=== PATIENT | female | born 2000 | race Caucasian/White ===

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

== ENCOUNTER 2020-03-11 16:24 | Emergency (ER) | payer OTHER ==
[~2020-03-11] VITALS: Ht 162.6 cm; Wt 89.8 kg
[2020-03-11 16:30] VITALS: BP 118/79; TEMP 98.9
== END 2020-03-11 18:41 | disposition home or self-care (01) ==
LOC: ED 16:24
DX: B34.8 Other viral infections of unspecified site (principal)
CPT/HCPCS: 87651; 99282

== ENCOUNTER 2021-11-04 17:12 | Outpatient (CLI) | payer OTHER | END 2021-11-04 19:18 | disposition home or self-care (01) | LOC: LABW 17:12 | PROVIDERS: ATTEND Nurse Practitioner Family | DX: J01.90 Acute sinusitis, unspecified (principal) | CPT/HCPCS: 87502; 87651 ==

== ENCOUNTER 2022-01-05 23:17 | Emergency (ER) | payer OTHER ==
[~2022-01-05] VITALS: Ht 162.6 cm; Wt 93.0 kg
[2022-01-06 00:47] LABS: PLATELET COUNT 318 K/uL (152-353)
[2022-01-06 01:28] VITALS: BP 137/91; TEMP 97.9
== END 2022-01-06 01:28 | disposition home or self-care (01) ==
LOC: ED 23:17
PROVIDERS: Emergency Medicine Emergency Medical Services
PROC: 2W3CX1Z Immobilization of Right Lower Arm using Splint (ICD-10-PCS; principal; 2022-01-05)
DX: M65.88 Other synovitis and tenosynovitis, other site (principal)
CPT/HCPCS: 36415; 81025; 85027; 85379; 85610; 93005; 96372; 99284; J1650

== ENCOUNTER 2022-01-07 14:31 | Observation (INO) | payer OTHER ==
[~2022-01-07] VITALS: Ht 160 cm; Wt 95.8 kg
--- NOTE | 2022-01-07 15:12 | NUR ---
PATIENT AMULATED TO ROOM 1109. PATIENT HAD A BRACE ON RIGHT WRIST. VITALS OBTAINED AND DOCUMENTED.
[2022-01-07 15:14] VITALS: BP 128/82; TEMP 98.7; Ht 160 cm; Wt 95.8 kg
[2022-01-07 16:08] LABS: PLATELET COUNT 366 K/uL (152-353)
[2022-01-07 20:00] VITALS: BP 127/79; TEMP 98.8
--- NOTE | 2022-01-07 20:00 | NUR ---
PATIENT SITTING UP IN BED. CLIENT REPORTS THROBBING 7/10 IN 3RD FINGER ON RIGHT HAND. CLIENT STATES THAT AFTER VANCOMYCIN INFUSED, REPORTS BILATERAL ITCHING OF PALMS OF HANDS AND ABDOMEN. MD NOTIFIED, ORDERS RECEIVED, SEE MAR. COLLECTED URINE SAMPLE. THIS NURSE MARKED REDNESS AND SWELLING ON FINGER. IV ACCESS NOTED TO LEFT ARM.
[2022-01-08] VITALS (9 sets, daily range): BP systolic 102–116; BP diastolic 65–85; TEMP 97.6–98.8
--- NOTE | 2022-01-08 02:00 | NUR ---
PATIENT REPORTS FINGER PAIN "NO LONGER THROBBING BAD." CLIENT RESTING IN BED. CALL LIGHT IN REACH.
--- NOTE | 2022-01-08 05:39 | NUR ---
PATIENT RESTING IN BED. 3RD FINGER SWELLING AND REDNESS DECREASED FROM ADMISSION LINE. CLIENT STATES THAT FINGER IS A 4/10, NO LONGER THROBBING LIKE DURING THE NIGHT.
--- NOTE | 2022-01-08 08:37 | NUR ---
PATIENT RESTING IN ROOM WITH NO COMPLAINTS AT THIS TIME.
--- NOTE | 2022-01-08 10:23 | NUR ---
HERE ROUNDING ON PATIENT. PHYSICIAN NOTIFIED PATIENT ABOUT DEBRIDING WOUND TO THE RIGHT HAND MID FINGER. PATIENT CONSENTS TO TREATMENT. CONSENT FORMS SIGNED AT THIS TIME.
--- NOTE | 2022-01-08 10:30 | NUR ---
IS AT THE BEDSIDE EXPLAINING PROCEDURE. 1051- VITALS SIGNS WERE TAKING PRIOR TO DEBRIDMENT: B/P 114/81, P-59,02 100@ RA, RR-18, 1055- FINGER CLEANED WITH CHOLORHEXDINE USING STERILE TECHNIQUE. LIDOCAINE GIVEN ON THE RIGHT HAND MIDFINGER. PATIENT TOLERATED WELL. 1100- VS B/P 113/85, P-55,02 -98% RA, RR-18. 1105- SANGUINOUS AND PUS DRAINAGE NOTED. MIDFINGER NAIL BED REMOVED. PATIENT TOLERATED WELL. 1110- B/P 116/74, P-66, 02 98%RA, RR-18. 1115-FINGER SOAKED WITH BETADINE FOR 5 MINUTES. 1120- BACTROBAN APPLIED, 2X2 PLACED AND SECURED WITH TUBULAR GAUZE. PATIENT IS RESTING COMFORTABLY. HAND ELEVATED. NO ACUTE DISTRESS IS NOTED.
[2022-01-08 10:42] LABS: PLATELET COUNT 318 K/uL (152-353)
[2022-01-08 10:53] LABS: POTASSIUM 4.1 mmol/L (3.6-5.2)
--- NOTE | 2022-01-08 18:17 | NUR ---
PATIENT IS RESTING IN ROOM IN HF POSITION IN BED. PATIENT HAS NO COMPLAINTS AT THIS TIME. CALL LIGHT WITHIN REACH
--- NOTE | 2022-01-08 21:50 | NUR ---
PATIENT SITTING UP IN BED, FAMILY MEMBER BROUGHT OUTSIDE DINNER. CLIENT DENIES PAIN/ DISCOMFORT AT THIS TIME. CALL LIGHT IN REACH, ANTIBIOTIC INFUSING.
[2022-01-09] VITALS: BP 110/67; TEMP 99
[2022-01-09 04:00] VITALS: BP 102/58; TEMP 98.6
[2022-01-09 05:17] LABS: PLATELET COUNT 301 K/uL (152-353)
[2022-01-09 05:32] LABS: POTASSIUM 3.8 mmol/L (3.6-5.2)
[2022-01-09 08:00] VITALS: BP 112/72; TEMP 98.4
--- NOTE | 2022-01-09 08:30 | NUR ---
REC'D ORDERS TO GET WITH ABX ALBAN AND ASK WHICH ABX WOULD BE BEST PO. WILL GET WITH [facility] IN [facility]
--- NOTE | 2022-01-09 08:48 | NUR ---
WOUND CULTURE RESULTS SENT TO DR SANTORO ALONG WITH LABS. AWAITING FURTHER ORDERS AT THIS TIME.
--- NOTE | 2022-01-09 09:20 | NUR ---
CALLED [facility] IN [facility] AND ASKED ABOUT PO ABX PER DR SANTORO REGARDING THE WOUND CULTUTRE AND SENSITIVITY. INSTRUCTED THAT DOXYCYCLINE WAS THE CHOICE OF PO ABX. DR SANTORO INFORMED AND AWAITING FURTHER ORDERS.
[2022-01-09 12:00] VITALS: BP 117/69; TEMP 98.3
--- NOTE | 2022-01-09 14:57 | NUR ---
NEW VERBAL ORDER REC'D FROM DR SANTORO TO GIVE ULTRAM 50MG X 1 PO NOW. GIVEN PER MD ORDERS
[2022-01-09 16:05] VITALS: BP 115/72; TEMP 98.7
--- NOTE | 2022-01-09 17:44 | NUR ---
PT IS COMPLETED WITH IV ABXS. IV SITE DC'D AND ROUTINE SITE CARE GIVEN. DISCHARGE ISNTRUCTIONS GIVEN AND EXPLAINED TO PT AND PT VERBALZIED UNDERSTANDING.
--- NOTE | 2022-01-09 17:51 | NUR ---
PT LEFT AMBUALTORY NO DISTRESS NOTED NO CO AT TIME OF DISCHARGE
== END 2022-01-09 17:51 | disposition home or self-care (01) ==
LOC: MED/SURG 14:31
PROVIDERS: ADMIT Family Medicine; ATTEND Family Medicine
PROC: 0HBFXZZ Excision of Right Hand Skin, External Approach (ICD-10-PCS; principal; 2022-01-08)
PROC: 0HBQXZZ Excision of Finger Nail, External Approach (ICD-10-PCS; 2022-01-08)
DX: L03.011 Cellulitis of right finger (principal); L02.511 Cutaneous abscess of right hand; M67.833 Other specified disorders of tendon, right wrist; D72.829 Elevated white blood cell count, unspecified; M77.8 Other enthesopathies, not elsewhere classified
CPT/HCPCS: 36415; 80053; 80202; 81000; 82550; 83605; 83735; 84100; 85027; 85379; 85652; 87040; 87070; 87077; 87185; 87186; 87205; 87635; 96367; 96374; 96375; 99220; G0378; G0379; J1885; J2250; J2543; J3370; J3475; U0003

== ENCOUNTER 2022-09-12 21:52 | Emergency (ER) | payer OTHER ==
[~2022-09-12] VITALS: Ht 160 cm; Wt 99.8 kg
[2022-09-12 22:42] LABS: PLATELET COUNT 544 K/uL (152-353)
[2022-09-12 22:44] LABS: POTASSIUM 3.7 mmol/L (3.6-5.2)
[2022-09-12 23:55] VITALS: BP 156/106; TEMP 98.6
== END 2022-09-12 23:55 | disposition home or self-care (01) ==
LOC: ED 21:52
PROVIDERS: Emergency Medicine
DX: R14.1 Gas pain (principal); O90.89 Other complications of the puerperium, not elsewhere classified; R03.0 Elevated blood-pressure reading, without diagnosis of hypertension
CPT/HCPCS: 36415; 80053; 80307; 81000; 82150; 83690; 84484; 85027; 93005; 96374; 96375; 99284; J1170; J2405

== ENCOUNTER 2022-09-13 06:07 | Emergency (ER) | payer OTHER ==
[~2022-09-13] VITALS: Ht 160 cm; Wt 99.8 kg
[2022-09-13 06:10] VITALS: TEMP 98.1
[2022-09-13 06:34] LABS: PLATELET COUNT 546 K/uL (152-353)
[2022-09-13 06:39] LABS: POTASSIUM 4.1 mmol/L (3.6-5.2)
[2022-09-13 09:30] VITALS: BP 135/80
[2022-09-13 10:02] LABS: PARTIAL THROMBOPLASTIN TIME 27.4 SECONDS (24.5-33.6)
== END 2022-09-13 13:20 | disposition still patient (30) ==
LOC: ED 06:07
PROVIDERS: Emergency Medicine
DX: R10.13 Epigastric pain (principal); R07.89 Other chest pain; R77.8 Other specified abnormalities of plasma proteins; O90.89 Other complications of the puerperium, not elsewhere classified; Z11.52 Encounter for screening for COVID-19
CPT/HCPCS: 36415; 80053; 81025; 82150; 83690; 84484; 85027; 85379; 85610; 85730; 87635; 93005; 96365; 96375; 99284; J1170; J1644; J2405; J3490; Q9963; U0003

== ENCOUNTER 2022-09-26 09:42 | Emergency (ER) | payer OTHER ==
[~2022-09-26] VITALS: Ht 160 cm; Wt 99.8 kg
[2022-09-26 09:45] VITALS: TEMP 97.8
[2022-09-26 10:21] LABS: PLATELET COUNT 484 K/uL (152-353)
[2022-09-26 10:28] LABS: POTASSIUM 4.4 mmol/L (3.6-5.2)
[2022-09-26 10:47] LABS: PARTIAL THROMBOPLASTIN TIME 31.6 SECONDS (24.5-33.6)
[2022-09-26 11:41] VITALS: BP 123/78
== END 2022-09-26 11:41 | disposition home or self-care (01) ==
LOC: ED 09:42
PROVIDERS: Emergency Medicine
DX: R10.13 Epigastric pain (principal); K80.20 Calculus of gallbladder without cholecystitis without obstruction; R94.5 Abnormal results of liver function studies
CPT/HCPCS: 80053; 82150; 83690; 83880; 84484; 85027; 85379; 85610; 85730; 93005; 96374; 96375; 99284

== ENCOUNTER 2022-09-30 11:01 | Outpatient (CLI) | payer OTHER ==
[2022-09-30 11:31] LABS: PLATELET COUNT 373 K/uL (152-353)
[2022-09-30 13:36] LABS: POTASSIUM 4.3 mmol/L (3.6-5.2)
== END 2022-09-30 19:15 | disposition home or self-care (01) ==
LOC: RAD 11:01
PROVIDERS: ATTEND Nurse Practitioner Family
DX: K81.0 Acute cholecystitis (principal); K59.00 Constipation, unspecified
CPT/HCPCS: 36415; 80053; 82150; 83690; 85027